=== PATIENT | male | born 1960 | race Caucasian/White ===

== ENCOUNTER 2016-07-13 23:55 | Emergency (ER) | payer BC ==
[~2016-07-13 23:55] MED LIST: AMLODIPINE BESYL5 MG PO; OMEPRAZOLE40 M1 PO; WAL-PROFEN200 M1 PO
[2016-07-14 00:48] LABS: BASOPHIL# 0.1 X10e3 (0-0.3); BASOPHIL% 0.9 % (0-2.5); DIFF IND NO; EOSINOPHIL# 0.1 X10e3 (0-0.7); EOSINOPHIL% 0.9 % (0.0-7.0); HEMATOCRIT 41.3 % (38.0-50.0); HEMOGLOBIN 13.8 gm/dL (13.0-16.0); LYMPHOCYTE# 2.2 X10e3 (1.0-3.5); LYMPHOCYTE% 38.6 % (17.0-45.0); MEAN CELL VOLUME 92.9 FL (83-96); MEAN CORPUSCULAR HGB CONC 33.4 g/dL (30-36); MEAN PLATELET VOLUME 8.1 FL (6.5-11.5); MONOCYTE# 0.5 X10e3 (0-1.0); MONOCYTE% 8.3 % (3.0-12.0); NEUTROPHIL# 2.9 X10e3 (1.5-7.1); NEUTROPHIL% 51.3 % (40-75); PLATELET COUNT 208 X10e3 (140-420); RED BLOOD COUNT 4.45 X10e (3.90-5.60); RED CELL DISTRIBUTION WIDTH 13.7 % (11.0-15.5); WHITE BLOOD COUNT 5.7 X10e3 (4.0-10.5)
[2016-07-14 00:57] LABS: INR 0.9; PROTHROMBIN TIME (PATIENT) 10.4 SECONDS (9.5-12.4)
[2016-07-14 01:04] LABS: PARTIAL THROMBOPLASTIN TIME 24.2 SECONDS (25.6-38.1)
[2016-07-14 01:08] LABS: ACETAMINOPHEN <10 ug/mL; ALBUMIN SERUM 4.5 g/dL (3.5-5.0); ALKALINE PHOSPHATASE 69 U/L (32-92); ALT (SGPT) 42 U/L (10-40); AST (SGOT) 39 U/L (10-42); BILIRUBIN, DIRECT <0.1 mg/dL (0.0-0.2); BILIRUBIN,INDIRECT 0.4 mg/dL (0.0-0.9); BILIRUBIN,TOTAL 0.5 mg/dL (0.2-2.0); BLOOD UREA NITROGEN 18 mg/dL (9-23); CALCIUM SERUM 8.5 mg/dL (8.4-10.2); CARBON DIOXIDE 24 mmol/L (22-31); CHLORIDE 102 mmol/L (100-111); GLOM FILT RATE Estimated 82.6 mL/min (>60); GLUCOSE FASTING 98 mg/dL (70-110); POTASSIUM 3.9 mmol/L (3.5-5.1); PROTEIN TOTAL SERUM 7.8 g/dL (6.0-8.3); SODIUM 140 mmol/L (135-145)
[2016-07-14 01:09] LABS: ALCOHOL BLOOD 390 mg/dL (0)
[2016-07-14 04:04] LABS: AMPHETAMINE NEG (NEG); BARBITURATES NEG (NEG); BENZODIAZEPINES NEG (NEG); COCAINE NEG (NEG); MARIJUANA NEG (NEG); OPIATES NEG (NEG); TRICYCLIC ANTIDEPRESSANTS NEG (NEG); U METHADONE NEG (NEG)
== END 2016-07-14 18:32 ==
LOC: SED 23:55
PROVIDERS: Emergency Medicine
DX: F10.10 Alcohol abuse, uncomplicated (principal); F32.9 Major depressive disorder, single episode, unspecified
CPT/HCPCS: 36415; 80048; 80076; 80307; 85025; 85610; 85730; 96360; 96361; 99285; C9113; G0480; J2060; J2405

== ENCOUNTER 2016-07-14 19:27 | Inpatient (IN) | payer BC ==
--- NOTE | ~2016-07-14 | DS ---
Unit #: [id number] #: [id number] Patient: GIBRAN KRISHNA [id number] [place] [address] [id number] MR#: [id number] NAME: GIBRAN KRISHNA ROOM: [facility] Age: 56 Sex: M Admission Date: 07/14/2016 : 1960 Discharge Date: 07/18/2016 Attending Physician: Jh Rios M.D. Primary Care Physician: Lowell Mcmahon M.D. DISCHARGE SUMMARY REASON FOR ADMISSION Alcohol dependency with detox. DIAGNOSTIC STUDIES Pertinent laboratory data, patient had routine blood work ordered which showed a CMP within normal parameters with the exception of ALT slightly elevated at 42, alcohol level upon admission was 101. PT noted to be 10.4. INR 0.9, PTT 24.2. CBC was well within normal parameters. RPR was nonreactive and urine toxicology screen was negative. HOSPITAL COURSE The patient was admitted for safety and stabilization for alcohol dependency for which he has had a longstanding history of usage that has been increasing with issues of being off work and isolation. He was put on appropriate detox protocols and over the course of the hospitalization his symptoms rapidly improved and resolved. He was having issues with aches, pains, sleep disturbance, slight tremors, diaphoresis, et cetera. Overall, by the time of discharge, he was denying signs of detox. His mood and affect were brighter. 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 He was denying any cravings or any issues of that nature. He was maintained on his home medications which included Lipitor, Protonix, and a combination of Lotensin and Norvasc for related medical conditions. No changes were made from their standpoint. The patient was also given Seroquel 50 mg at bedtime to help with sleep but only during this hospitalization. By the time of discharge, again, it was felt that the patient had reached maximum benefit from inpatient admission and was appropriate to stepdown and followup care with the CD/IOP program at [facility]. The patient was also kept on his dose of Protonix for underlying gastroesophageal reflux disease. DISCHARGE DIAGNOSES Willard I Alcohol dependency with withdrawal. Willard II Willard III Hypertension. Hyperlipidemia. Gastroesophageal reflux disease. Willard IV Willard V DISCHARGE FOLLOWUP CARE Will be through the CD/IOP program as well as with his primary care doctor as scheduled. Unit #: [id number] #: [id number] Patient: GIBRAN KRISHNA DISCHARGE MEDICATIONS Included: 1. Protonix 40 mg twice a day by mouth for his gastroesophageal reflux disease 2. Lipitor 20 mg at bedtime for hyperlipidemia 3. Lotensin 20 and Norvasc 5 daily in combo form for hypertension No other medications. CONDITION AT DISCHARGE Improved. PROGNOSIS Fair given good support through family and outpatient program motivation. DIET AND ACTIVITY Diet is heart healthy. Activity as tolerated. Dictated by... Bennett Tyson/valdemar TD: 07/18/2016 12:28 JOB #: [id number] DISCHARGE SUMMARY Page 1 of 1 X Jh Rios MD X DISCHARGE SUMMARY
--- NOTE | ~2016-07-14 | PN ---
Unit #: [id number] #: [id number] Patient: GIBRAN KRISHNA [id number] [facility] [address] [place] [address] [id number] MR#: [id number] NAME: GIBRAN KRISHNA ROOM: [facility] Age: 56 Sex: M Admission Date: 07/14/2016 : 1960 Attending Physician: Jh Rios M.D. Admitting Physician: Jh Rios M.D. Primary Care Physician: Lowell Mcmahon M.D. [facility] PROGRESS NOTES DATE 07/17/2016 DISCUSSION SUBJECTIVE UPDATE This is a 56-year-old white male, who is here in the hospital for ongoing detox issues with substance abuse especially alcohol. The patient reports doing somewhat better today. He said sleep was better last night. He was "feeling more myself." The patient is still reporting some issues with tremor, aches, and pains. Some anxiety issues, upset stomach, all of which are improving. Unfortunately the patient's vital signs continue to be elevated with the blood pressure of 152/101, pulse of 77, and respiratory rate is 16. The patient is compliant with all aspects of care and he did seem more energetic today. MENTAL STATUS EXAMINATION General appearance is a moderately groomed white male who appears stated age, mild tremors as noted in hands. Speech was clear and coherent with limited paucity. Mood was "good" with a congruent affect, opposites and content were grossly organized and linear. No psychosis. No SI and no HI reported. Patient's memory was grossly intact and associations were normal. Cognitive functioning was at baseline. He was alert and oriented x4. Insight and judgment is improving. RECOMMENDATIONS Will continue the patient's admission for safety and stabilization for ongoing detox issues with alcohol. The patient, overall, showing good progress, residual symptoms as noted above. Most likely disposition will occur soon if the patient's progress continues and maintained. Community resources are most likely the patient's disposition plan as the patient mentioned going to [facility] for outpatient programming. Dictated by... Jh Rios M.D. BRENDA/valdemar TD: 07/19/2016 09:53 Unit #: [id number] #: [id number] Patient: GIBRAN KRISHNA JOB #: [id number] [facility] PROGRESS NOTES Page 1 of 1 X Jh Rios MD PROGRESS NOTE
--- NOTE | ~2016-07-14 | PA ---
Unit #: [id number] #: [id number] Patient: GIBRAN KRISHNA [id number] [place] [address] [id number] I MR#: [id number] NAME: GIBRAN KRISHNA ROOM: P183 Age: 56 Sex: M Admission Date: 07/14/2016 : 1960 Date of Assessment: Attending Physician: Jh Rios M.D. Admitting Physician: Jh Rios M.D. Primary Care Physician: Lowell Mcmahon M.D. PSYCHIATRIC ASSESSMENT LOCATION [facility], room #183, bed #2. DATE OF SERVICE 07/15/2016. INFORMANTS The patient and chart both should be reliable. CHIEF COMPLAINT Decided, "I needed help to stop drinking." HISTORY OF PRESENT ILLNESS This is a 56-year-old white male who has had a history of continuing to escalate alcohol dependency. It is only gotten worse over the last few years. The patient reports drinking a fifth or more a day plus beers. The patient has noticed recently with being laid off from work, that is only getting worse. He had an intermittent problems with withdrawal in terms of aches and pains and tremors in his hands, and sleep disturbance, in the past few "times" have been very "bad" and that is why he is motivated for treatment at this time. The patient seems in fairly jovial mood that is noticeably tremors in his hands as well as some mild diaphoresis, but is focused and oriented. Apparently, he reported having hallucinations overnight in terms of seeing people in his room that were not there. He realized that they were hallucinations, but still could not dismiss them. He said he has not had that problem until this exact issue and so this admission has been more concerned about his need for withdrawal monitoring. Overall no SI or HI. No acute mood issues other than some anxiety with his withdrawal symptoms. He seems to be motivated for treatment and compliant per staff, but no previous treatments officially, inpatient or outpatient or before now. PAST PSYCHIATRIC HISTORY Nothing of significance. No official treatment and the patient had no history of medications. No history of SI, HI or psychosis. FAMILY HISTORY Significant for alcohol dependency with both his brother and his father. Father was initially treated at [facility] back in the 70s. He was here for the better part of the month. According to the patient, had to be strapped to the bed and after that the patient's father stopped drinking. 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 Has a twelfth grade education. MEDICAL ISSUES Significant for Woodward esophagus as well as hypertension and hyperlipidemia. The patient is in treatment for all. MEDICATION HISTORY Include Protonix 40 mg b.i.d., Lipitor 20 mg at bedtime, Lotensin 20 mg daily, Norvasc 5 mg daily, vitamin B-50 one each t.i.d. with meals per protocol here in the hospital for standard detox medications now in the hospital. ALLERGIES Include no known drug allergies. SUBSTANCE ABUSE HISTORY As noted above, but with no history of official treatment inpatient around. No medical hospitalization of history of seizures per patient. Other symptoms as noted, had a distant history of illicit substance use which he did not go into detail outpatient. He has not done any in the last 20 to 30 years. MENTAL STATUS EXAMINATION General appearance; this is a limitedly groomed white male, fairly pleasant, cooperative, responsive to the interview process. Speech was clear and coherent with normal prosody. Mood was anxious with a congruent affect. Thought process and content are grossly organized and linear. No overt evidence of psychosis. No SI, no HI reported at this time. The patient had hallucinations last night, but not right now. The patient's memory was grossly intact. Associations were normal. Alert and oriented x4. Cognitive function was at baseline. Insight and judgment are limited regarding substance abuse. Assets include supportive girlfriend and other family, is still employed. Liabilities include no previous exposure to CD treatment for full detox care and continued substance abuse. ADMITTING DIAGNOSES 1. Alcohol dependency with withdrawal. 2. Hypertension. 3. Hyperlipidemia. 4. History of Woodward esophagus. PSYCHIATRIC PLAN To continue the patient's admission in the safe controlled environment for alcohol detox, but appropriate protocol in place. The patient to be maintained on his home medications for his medical conditions. The patient has been offered trazodone 100 mg at bedtime as needed for sleep. It seems he is responding too well. Treatment goals were resolution of all the symptoms in a controlled safe environment with discharge plan, most likely for community resources, when the patient is appropriate. Estimated length of stay approximately 4 to 5 days depending on the patient's progress and response to treatment. Dictated by... Unit #: [id number] #: [id number] Patient: GIBRAN KRISHNA M.D. SB/gerardo TD: 07/15/2016 13:24 JOB #: [id number] PSYCHIATRIC ASSESSMENT Page 1 of 1 X Jh Rios MD X PSYCHIATRIC ASSESSMENT
--- NOTE | ~2016-07-14 | HP ---
Unit #: [id number] #: [id number] Patient: GIBRAN KRISHNA [id number] [place] [address] [id number] MR#: [id number] NAME: GIBRAN KRISHNA ROOM: [facility] Age: 56 Sex: M Admission Date: 07/14/2016 : 1960 Attending Physician: Jh Rios M.D. Admitting Physician: Jh Rios M.D. Primary Care Physician: Lowell Mcmahon M.D. HISTORY AND PHYSICAL HISTORY OF PRESENT ILLNESS The patient is a 56-year-old male admitted to [facility] on 07/14/2016 to detox from alcohol. PAST MEDICAL HISTORY 1. Alcohol addiction. 2. Hypertension. 3. Hyperlipidemia. 4. Woodward's esophagus. PAST SURGICAL HISTORY None noted. ALLERGIES No known drug allergies. SOCIAL HISTORY Patient is unemployed. He lives alone. He drinks a fifth of whiskey plus 3 to 4 beers per day. FAMILY HISTORY Noncontributory. REVIEW OF SYSTEMS CONSTITUTIONAL: No fever or chills. HEENT: Denies any sore throat, ear pain or runny nose. CARDIOVASCULAR: Denies chest pain, irregular heart rhythm or palpitations. CHEST: Denies shortness of breath or cough. No hemoptysis. GASTROINTESTINAL: Denies nausea, vomiting, diarrhea or chronic constipation. ENDOCRINE: Denies history of increased thirst or urination. No recent significant weight loss or gain. GENITOURINARY: Denies dysuria, frequency, or hematuria. SKIN: Denies any rashes. HEMATOLOGIC: Denies history of increased bleeding or bruising. MUSCULOSKELETAL: Denies any hot, swollen joints. No generalized muscle pain. NEUROLOGIC: Denies problems with vision or speech. No frequent, severe headaches. No numbness, tingling or weakness in any extremities. Denies loss of bladder or bowel control. CURRENT MEDICATIONS 1. Omeprazole. Unit #: [id number] #: [id number] Patient: GIBRAN KRISHNA 2. Atorvastatin. 3. Amlodipine with benazepril. PHYSICAL EXAMINATION GENERAL: He is awake, alert, oriented, in no acute distress. VITAL SIGNS: Temperature 98.8, heart rate 121, respirations 20, blood pressure 160/104. HEIGHT: 6 feet 0. WEIGHT: 225 pounds. SKIN: Warm and dry without rash or lesion. HEENT: Normocephalic. TMs not viewed. Oral and nasal passages clear. Conjunctivae clear. PERRLA. EOMs intact. NECK: Supple without lymphadenopathy or thyromegaly. HEART: Regular rate and rhythm without murmur. LUNGS: Clear. ABDOMEN: Soft, nontender. : Not done. EXTREMITIES: No evidence of cyanosis, clubbing or edema. Moves all without focal deficit. NEUROLOGICAL: Grossly within normal limits. Cranial Nerves: II: Visual spencer are intact. III, IV AND : Extraocular movements are intact. Pupils are equal, round and reactive to light. V: Facial sensation is grossly normal. VII: Facial movements and expression are normal. VIII: Auditory acuity grossly intact. IX, X: Uvula is midline. Phonation is normal. XI: Patient shrugs shoulders and turns head normally. XII: Tongue protrudes in the midline. Sensory and Motor Function: Sensory and motor sensation is grossly normal. Motor: moves all extremities well. Coordination: Gait is normal. Deep Tendon Reflexes: Intact. IMPRESSION 1. Psychiatric admission. 2. Alcohol dependence. 3. Hypertension. 4. Hyperlipidemia. 5. Woodward's esophagus. RECOMMENDATIONS PSYCHIATRIC: Per psychiatrist. MEDICAL: No contraindications to participate in facility's activities. MEDICAL PROGNOSIS Fair. MEDICAL CONDITION Stable. Dictated by... Marleny Montesinos/kal TD: 07/15/2016 18:01 Unit #: [id number] #: [id number] Patient: GIBRAN KRISHNA JOB #: [id number] HISTORY AND PHYSICAL Page 1 of 1 X ARTHUR CARLSON APRN HISTORY AND PHYSICAL
--- NOTE | ~2016-07-14 | PN ---
Unit #: [id number] #: [id number] Patient: GIBRAN KRISHNA [id number] [place] [address] [id number] I MR#: [id number] NAME: GIBRAN KRISHNA ROOM: P183 Age: 56 Sex: M Admission Date: 07/14/2016 : 1960 Attending Physician: Jh Rios M.D. Admitting Physician: Jh Rios M.D. Primary Care Physician: Lowell Mcmahon M.D. [facility] PROGRESS NOTES DATE OF SERVICE: 07/16/2016 LOCATION [facility], room #183, bed #2. SUBJECTIVE This is a 56-year-old male here in the hospital with issues of ongoing alcohol detox. The patient reports not sleeping well last night with an upset stomach, some tremors, and some sweating. The patient's vital signs to be elevated with a blood pressure 132/100 this morning with a pulse of 82. The patient also reporting some nauseousness. Affect seems stabilized yesterday, and anxiety and depression seemed to be negligible. No active SI. MENTAL STATUS EXAMINATION General appearance; this is a moderately groomed white male, appears older than stated age, somewhat disheveled today. Speech was clear and coherent with normal prosody. Mood was "worse" with somewhat dysphoric and congruent affect. Thought process and content are grossly organized and linear. No overt evidence of psychosis. The patient denied any active SI or HI. The patient denied any psychosis today. No hallucinations. The patient's memory was grossly intact. Associations were normal. Alert and oriented x4. Cognitive function was at baseline. Insight and judgment remain limited. RECOMMENDATIONS We will continue the patient's admission for ongoing issues with alcohol dependency. Detox is progressing with symptoms as noted and elevated blood pressure. We will switch the patient over to Seroquel 50 mg at night for sleep and mood issues, and we will monitor for response. Overall, the patient continues to need stabilization and detox purposes and will continue to monitor in a safe and controlled environment such as, at [facility]. Dictated by... Jh Rios M.D. SB/modl TD: 07/16/2016 11:21 JOB #: [id number] Unit #: [id number] #: [id number] Patient: GIBRAN KRISHNA PROGRESS NOTES Page 1 of 1 X Jh Rios MD PROGRESS NOTE
== END 2016-07-18 12:45 | disposition home or self-care (01) | DRG 897 ==
LOC: P1E 19:27
PROC: HZ2ZZZZ Detoxification Services for Substance Abuse Treatment (ICD-10-PCS; principal; 2016-07-14)
DX: F10.239 Alcohol dependence with withdrawal, unspecified (principal); I10 Essential (primary) hypertension; E78.5 Hyperlipidemia, unspecified; K22.70 Barrett's esophagus without dysplasia; K21.9 Gastro-esophageal reflux disease without esophagitis; Y90.5 Blood alcohol level of 100-119 mg/100 ml
CPT/HCPCS: 86592